=== PATIENT | male | born 2000 | race African-American/Black ===

== ENCOUNTER 2020-06-02 19:35 | Emergency (ER) | payer OTHER ==
[2020-06-02] MEDS ORDERED: IBUPROFEN 600 MG TABLET PO ONE (19:51)
--- NOTE | 2020-06-02 19:55 | ER Document Report ---
ED Medical Screen (RME) - General Chief Complaint: Finger Injury Stated Complaint: FINGER INJURY Time Seen by Provider: 06/02/20 19:50 Mode of Arrival: Ambulatory Information source: Patient Notes: 19-year-old male presented to ED for of injury to the fifth finger on the left hand. He states he was playing basketball when he jammed the finger. It does look dislocated at the PIP joint. He is alert oriented respirations regular nonlabored speaking in full sentences. I have treated him with some ibuprofen and will go to x-ray and then he will be seen by another provider. He does not have any past medical or surgical history. He does not drink smoke or use any drugs. He is active duty . I have greeted and performed a rapid initial assessment of this patient. A comprehensive ED assessment and evaluation of the patient, analysis of test results and completion of medical decision making process will be conducted by an additional ED providers. Physical Exam - Vital signs Vitals: Temp Pulse Resp BP Pulse Ox 98.2 F 68 16 133/56 H 98 06/02/20 19:46 06/02/20 19:46 06/02/20 19:46 06/02/20 19:46 06/02/20 19:46 Course - Vital Signs Vital signs: Temp Pulse Resp BP Pulse Ox 98.2 F 68 16 133/56 H 98 06/02/20 19:46 06/02/20 19:46 06/02/20 19:46 06/02/20 19:46 06/02/20 19:46
[2020-06-02] MEDS ORDERED: HYDROCODONE/ACETAMINOPHEN 5-325 MG TABLET PO ONE (21:41)
--- NOTE | 2020-06-02 21:47 | ER Document Report ---
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 Patient states he was playing basketball earlier today and reached out with his left hand to steal the basketball from another player and jammed his left fifth finger against the other players knee. Patient presents complaining of swelling and pain at the PIP joint of the left fifth finger. Patient denies other injury. Patient denies known history of fever, chills, shortness of breath, history of COVID-19 infection, known exposure to COVID-19 positive persons or persons under investigation for COVID-19. Patient denies prior injury to the his left hand. Patient states pain is worse when he tries to flex or extend the finger. And states the pain was slightly alleviated by the Motrin he was given in triage. - Related Data Allergies/Adverse Reactions: No Known Allergies Allergy (Unverified 06/02/20 19:59) Past Medical History - General Information source: Patient - Social History Smoking Status: Never Smoker Family History: Reviewed & Not Pertinent Review of Systems - Review of Systems Constitutional: No symptoms reported EENT: No symptoms reported Cardiovascular: No symptoms reported Respiratory: No symptoms reported Gastrointestinal: No symptoms reported Genitourinary: No symptoms reported Male Genitourinary: No symptoms reported Musculoskeletal: Joint pain, Joint swelling Skin: No symptoms reported Hematologic/Lymphatic: No symptoms reported Neurological/Psychological: No symptoms reported -: Yes All other systems reviewed and negative Physical Exam - Vital signs Vitals: Temp Pulse Resp BP Pulse Ox 98.2 F 68 16 133/56 H 98 06/02/20 19:46 06/02/20 19:46 06/02/20 19:46 06/02/20 19:46 06/02/20 19:46 - Notes Notes: CONSTITUTIONAL [Vital signs reviewed, Patient appears comfortable, Alert and oriented X 3, Normal stature.] HEAD [Atraumatic, Normocephalic.] EYES [Eyes are normal to inspection, No discharge from eyes, Extraocular muscles intact, Sclera are normal, Conjunctiva are normal.] ENT [External ears normal to inspection, Nose examination normal, Mouth normal to inspection.] NECK [Normal ROM, No jugular venous distention, No meningeal signs, ] UPPER EXTREMITY Upper extremity exam: Patient has a area of swelling and tenderness involving his left fifth PIP joint. There does not appear to be any deformity, crepitus or step-off. Patient has slightly reduced active flexion extension of the PIP joint of his left fifth finger. Sensation is grossly intact in his left fifth digit. Cap refill is less than 2 seconds. LOWER EXTREMITY [Inspection normal, No cyanosis, No clubbing, No edema, No calf tenderness, NEURO [No focal motor deficits, No focal sensory deficits, Speech normal.] SKIN [Skin is warm, Skin is dry, Skin is normal color.] LYMPHATIC [No adenopathy in neck.] PSYCHIATRIC [Normal affect. ] Course - Re-evaluation Re-evalutation: 06/02/20 22:41 Results of ED MSE discussed with patient and patient's significant other. When the patient was asked if all of his questions were answered and if all of his concerns during this visit were addressed, patient answered in the affirmative. Pain medications, splinting, follow-up all discussed with patient. Emergency signs and symptoms, reasons to return to the emergency department discussed with patient. - Vital Signs Vital signs: Temp Pulse Resp BP Pulse Ox 98.2 F 68 16 133/56 H 98 06/02/20 19:46 06/02/20 19:46 06/02/20 19:46 06/02/20 19:46 06/02/20 19:46 - Diagnostic Test Radiology reviewed: Reports reviewed Procedures - Immobilization Left 5th digit Time completed: 23:20 - Left fifth distal phalanx fracture involving DIP Pre-Proc Neuro Vasc Exam: Normal Immobilizer type: Ulnar, Sling Performed by: PCT Post-Proc Neuro Vasc Exam: Normal, Unchanged from pre-exam Alignment checked and good: Yes Discharge - Discharge Clinical Impression: Closed fracture of phalanx of left hand Qualifiers: Encounter type: initial encounter Finger: little finger Phalanx: middle Fracture alignment: nondisplaced Qualified Code(s): S62.657A - Nondisplaced fracture of middle phalanx of left little finger, initial encounter for closed fracture Condition: Stable Disposition: HOME, SELF-CARE Additional Instructions: Be certain to contact Dr. Lopes's office tomorrow to schedule a follow-up appointment. You have been diagnosed with a broken bone in your finger. It is important that you keep the finger in the splint and sling provided and that she follow-up with Dr. oLpes with orthopedics as instructed. Return to the Emergency Department without delay if any worse. HOME CARE INSTRUCTIONS & INFORMATION: Thank you for choosing us for your [facility] needs. We hope you're satisfied with the care you received. After you leave, you must properly care for your problem and, at the same time, observe its progress. Any condition can change. Some illnesses can change rapidly over hours or days. If your condition worsens, return to the Emergency Department or see your physician promptly. ABOUT YOUR X-RAYS AND EKG'S: If you had an EKG or X-rays taken, they have been read by the Emergency Physician. The X-rays and EKG's will also be read by a Radiologist or Medical Records Library Professor within 24 hours. If discrepancies are noted, you will be notified by telephone. Please be certain the ED has a correct telephone number & address where you can be reached. Also, realize that some fractures or abnormalities do not show up on initial X-rays. If your symptoms continue, see your physician. ABOUT YOUR LABORATORY TEST: If you had laboratory tests, the results have been reviewed by the Emergency Physician. Some test results (for example cultures) may not be available for several days. You will be contacted if any test result shows you need additional treatment. Please be certain the ED has a correct telephone number and address where you can be reached. ABOUT YOUR MEDICATIONS: You will receive instructions on how to take your medicine on the prescription label you receive. Additional information may be provided by the Pharmacy. If you have questions afterwards, call the ED for clarification or further instructions. Some prescribed medications may cause drowsiness. Do not perform tasks such as driving a car or operating machinery without consulting your Pharmacist. If you feel you need a refill of pain medication, your condition will need re-evaluation. Please do not call for a refill of any medication. ABOUT YOUR SIGNATURE: Signature of this document acknowledges to followin. Understanding that you received emergency treatment and that you may be released before al medical problems are known or treated. Please be certain the ED has a correct phone number & address where you can be reached. 2. Acknowledgement that you will arrange for follow-up care as recommended. 3. Authorization for the Emergency Physician to provide information to your follow-up Physician in order to maximize your care. AT ANY TIME, IF YOUR SYMPTOMS CHANGE SIGNIFICANTLY OR WORSEN OR YOU DEVELOP NEW SYMPTOMS, RETURN TO THE EMERGENCY DEPARTMENT IMMEDIATELY FOR RE-EVALUATION. OUR GOAL IS TO PROVIDE EXCELLENT MEDICAL CARE! WE HOPE THAT WE HAVE MET YOUR EXPECTATIONS DURING YOUR EMERGENCY DEPARTMENT VISIT AND THAT YOU FEEL YOU HAVE RECEIVED EXCELLENT CARE! Fractured Finger There is a fracture in your finger. The bone is straight and in good position to heal. The doctor has assessed the seriousness of the fracture and has explained your treatment plan. Usually the finger will be splinted until fracture healing is complete. This is usually about three or four weeks. At that time, the injured finger may be taped to the next finger to provide a moving splint for longer protection. The first few days after the injury, the finger should be kept elevated and cold (with ice packs). This decreases the swelling and pain. You should contact the doctor or return at once if pain or swelling become severe, or if the finger becomes numb. Some degree of bruising is normal with a finger fracture. Prescriptions: Hydrocodone/Acetaminophen [[place] 5-325 mg Tablet] 1 tab PO Q6HP PRN #10 tablet PRN Reason: severe pain Ibuprofen [Ibu] 800 mg PO Q8HP PRN #30 tablet PRN Reason: pain Referrals: KVNG LOPES MD [ACTIVE STAFF] - 06/03/20 (Call Dr. Lopes's office on 06/03/2020 to schedule a follow-up appointment for your broken finger.)
--- NOTE | 2020-06-02 22:13 | RADIOLOGY REPORT (SQ) ---
EXAM DESCRIPTION: FINGER LEFT, three views CLINICAL HISTORY: 19 years Male, Injury to left fifth finger jammed playing basketball COMPARISON: None. FINDINGS: . On the frontal view of the fingers are all flexed. Bone mineralization is normal. Soft tissue swelling is present at the fifth finger and there is a nondisplaced fracture of the distal aspect of the middle phalanx. This involves the IP joint. This is only seen on the lateral view. IMPRESSION: Nondisplaced fracture of the distal aspect of the left fifth middle phalanx. This appears to involve the DIP joint.
[2020-06-02] MEDS ORDERED: HYDROCODONE/ACETAMINOPHEN 5-325 MG (6 TAB/ER DISP) PO PRN (22:45)
[2020-06-02 23:10] VITALS: BP 129/65
== END 2020-06-02 23:14 | disposition home or self-care (01) ==
LOC: ER 19:35
DX: S62.657A Nondisplaced fracture of middle phalanx of left little finger, initial encounter for closed fracture (principal); W51.XXXA Accidental striking against or bumped into by another person, initial encounter; Y93.67 Activity, basketball
CPT/HCPCS: 99284